=== PATIENT | female | born 1940 | race Caucasian/White ===

== ENCOUNTER → 2019-05-09 | Outpatient (CLI) | payer MEDICARE, BC ==
[~2019-05-09] MED LIST: DIAZIDE PO; FE-TABS325 MG PO; FOLIC ACID 40400 MCG PO; LISINOPRIL5 MG PO; VITAMIN C PO; ZOCOR 40MG40 MG PO
== END ==
LOC: MC.RAD 14:24
DX: Z12.31 Encounter for screening mammogram for malignant neoplasm of breast (principal)